=== PATIENT | female | born 1965 | race Two or more races ===

== ENCOUNTER 2020-05-23 10:01 | Outpatient (CLI) | payer OTHER ==
[~2020-05-23 10:01] MED LIST: ATENOLOL25 MG PO
== END 2020-05-23 10:13 | disposition home or self-care (01) ==
LOC: SONOGRAMA 10:01
PROVIDERS: ATTEND Pathology Anatomic Pathology & Clinical Pathology
DX: L04.2 Acute lymphadenitis of upper limb (principal)

== ENCOUNTER 2020-11-28 09:54 | Outpatient (CLI) | payer OTHER | END 2020-11-28 14:03 | disposition home or self-care (01) | LOC: SONOGRAMA 09:54 | PROVIDERS: ATTEND Pathology Anatomic Pathology & Clinical Pathology | DX: E04.2 Nontoxic multinodular goiter (principal); D34 Benign neoplasm of thyroid gland; E06.3 Autoimmune thyroiditis ==